=== PATIENT | female | born 1945 | race Caucasian/White ===

== ENCOUNTER → 2023-09-20 07:50 | Outpatient (REF) | payer MEDICARE, OTHER, SELFPAY | LOC: DHCBS HW 07:50 | PROVIDERS: ATTENDING PHYSICIAN Internal Medicine Cardiovascular Disease; FAMILY PHYSICIAN Family Medicine | DX: R60.0 Localized edema (principal) | CPT/HCPCS: 93306 ==

== ENCOUNTER 2024-05-01 03:03 | Emergency (ER) | payer MEDICARE, OTHER, SELFPAY ==
[2024-05-01 03:04] VITALS: BP 134/50
[2024-05-01 03:24] VITALS: BMI 22.9
--- NOTE | 2024-05-01 03:43 | ED.GENMED ---
History of Present Illness
<CRISTA Moore - Last Filed: 05/01/24 07:19>
General
Chief Complaint: Chest Problem
Time Seen by Provider: 05/01/24 03:43
History of Present Illness
History of Present Illness:
Patient is a 78 year old female with a PMH of myelodysplastic syndrome and GERD presenting to the ED with complaints of chest pain x 11 hours. The pain started around 300pm when she was straining on the toilet. The pain was described as dull and
generalized around the chest that radiates to both of her shoulders. Patient rates the pain a 9/10. The pain is worse with laying down and deep breaths. Patient states the pain is not similar to GERD exacerbations. She claims the pain has been
getting worse with time and that Tylenol and albuterol have not helped at all. Patient states shes had multiple bowel movements throughout the night that have been normal. She also admits to associated nausea that comes and goes with 1 bout of
vomiting around 1am after taking a Zofran. There was no blood and described as just a clear to yellowish liquid. Patient denies hematemesis sob fatigue dizziness numbness tingling.
Patient has myelodysplastic syndrome for which she is on lenalidomide for. She started this medication around 2 months ago. Patient also recently had a blood transfusion 3 weeks ago for her anemia. Patient denies any alcohol or tobacco use.
Past History
<CRISTA Moore - Last Filed: 05/01/24 07:19>
Past History
ED Past Medical History: Cancer, Hypothyroidism, Psychiatric and Other (osteopenia)
ED Past Surgical History: Appendectomy, Bowel resection and Gynecological
Social History
Tobacco: Non-smoker
Alcohol: None
Drug: None
Personal:
Living: with family
Employment: Retired
Family History
Family History: Other (Unremarkable)
Review of Systems
<CRISTA Moore - Last Filed: 05/01/24 07:19>
Review of Systems
Respiratory: Reports no symptoms
Cardiac: Reports chest pain
ABD/GI: Reports nausea and vomiting
Neurological: Reports no symptoms
Phy Exam
<CRISTA Moore - Last Filed: 05/01/24 07:19>
General Physical Exam
General Presentation: well appearing and mild distress
General age: appears stated age
General Habitus: elderly
General Mental: alert
Cardiovascular Exam
Cardiovascular Exam: regular rate/rhythm, no edema, no gallop, no JVD and no murmur
Pulmonary Exam
Pulmonary Exam: lungs clear, no respiratory distress, no rales, chest non tender, no crackles, no rhonchi, no stridor, no wheezing and no cough
Scores
<CRISTA Moore - Last Filed: 05/01/24 07:19>
Heart Score for Chest Pain Patients
STEMI patient?: No
History: Slightly or Non-Suspicious
ECG: Normal
Age: >/= 65 years
Risk Factors: 1 or 2 Risk Factors
Troponin: </= Normal Limit
Heart Score for Chest Pain Patients: 3
Heart Score Risk: 2.5% MACE over next 6 weeks
<Kaya Waite DO - Last Filed: 05/01/24 07:22>
Heart Score for Chest Pain Patients
Heart Score for Chest Pain Patients: 3
Heart Score Risk: 2.5% MACE over next 6 weeks
Course
<CRISTA Moore - Last Filed: 05/01/24 07:19>
Orders/Labs/Results
Orders:
Orders
05/01/24 03:12
ECG [Electrocardiogram (*1)] Urgent
Reason for Study: Chest Pain
EKG- Treatment ONCE
05/01/24 03:27
Complete Blood Count/With Diff Urgent
Comprehensive Metabolic Panel Urgent
Manual Differential Urgent
Troponin I Urgent
05/01/24 03:45
Chest [CR Chest - 2 Views ] Urgent
Comment:
Reason For Exam: cp
05/01/24 04:14
Mag Hydrox/Al Hydrox/Simeth [Maalox] 30 ml Phenobarb/Hyoscy/Atropine/Scop [] 10 ml Viscous Lidocaine 2% [Xylocaine Viscous Cup] 10 ml PO NOW
05/01/24 04:19
Mag Hydrox/Al Hydrox/Simeth [Maalox] 30 ml .ROUTE .STK-MED ONE
Phenobarb/Hyoscy/Atropine/Scop [] 10 ml .ROUTE .STK-MED ONE
Viscous Lidocaine 2% [Xylocaine Viscous Cup] 15 ml .ROUTE .STK-MED ONE
05/01/24 05:07
Sucralfate Suspension [Carafate Suspension] 1 gm .ROUTE .STK-MED ONE
05/01/24 05:09
Sucralfate Suspension [Carafate Suspension] 1 gm TUBE NOW STA
05/01/24 05:42
Pantoprazole [Protonix IV] 40 mg IV NOW STA
Abnormal Lab Results
05/01/24
03:27
WBC 4.0 L 10^3/uL
(4.8-10.8)
RBC 2.62 L 10^6/uL
(4.20-5.40)
Hgb 7.7 L g/dL
(12.0-16.0)
Hct 24.1 L %
(37.0-47.0)
MCHC 32.0 L g/dL
(33.0-37.0)
RDW 21.4 H %
(11.5-14.5)
Band Neutrophils 4 H %
(0-3)
BUN 32 H mg/dl
(7-17)
Glucose 107 H mg/dl
(70-99)
05/01/24 03:27
05/01/24 03:27
Vital Signs
Initial and Last Documented VS:
Initial Vital Signs
Temp Pulse Resp BP Pulse Ox
97.6 F 84 24 134/50 99
05/01/24 03:04 05/01/24 03:04 05/01/24 03:04 05/01/24 03:04 05/01/24 03:04
Last Documented Vital Signs
Temp Pulse Resp BP Pulse Ox
97.6 F 68 16 97/51 98
05/01/24 03:04 05/01/24 07:15 05/01/24 07:17 05/01/24 07:14 05/01/24 07:17
<Kaya Waite, DO - Last Filed: 05/01/24 07:22>
Orders/Labs/Results
Orders:
Orders
05/01/24 03:12
ECG [Electrocardiogram (*1)] Urgent
Reason for Study: Chest Pain
EKG- Treatment ONCE
05/01/24 03:27
Complete Blood Count/With Diff Urgent
Comprehensive Metabolic Panel Urgent
Manual Differential Urgent
Troponin I Urgent
05/01/24 03:45
Chest [CR Chest - 2 Views ] Urgent
Comment:
Reason For Exam: cp
05/01/24 04:14
Mag Hydrox/Al Hydrox/Simeth [Maalox] 30 ml Phenobarb/Hyoscy/Atropine/Scop [] 10 ml Viscous Lidocaine 2% [Xylocaine Viscous Cup] 10 ml PO NOW
05/01/24 04:19
Mag Hydrox/Al Hydrox/Simeth [Maalox] 30 ml .ROUTE .STK-MED ONE
Phenobarb/Hyoscy/Atropine/Scop [] 10 ml .ROUTE .STK-MED ONE
Viscous Lidocaine 2% [Xylocaine Viscous Cup] 15 ml .ROUTE .STK-MED ONE
05/01/24 05:07
Sucralfate Suspension [Carafate Suspension] 1 gm .ROUTE .STK-MED ONE
05/01/24 05:09
Sucralfate Suspension [Carafate Suspension] 1 gm TUBE NOW STA
05/01/24 05:42
Pantoprazole [Protonix IV] 40 mg IV NOW STA
Abnormal Lab Results
05/01/24
03:27
WBC 4.0 L 10^3/uL
(4.8-10.8)
RBC 2.62 L 10^6/uL
(4.20-5.40)
Hgb 7.7 L g/dL
(12.0-16.0)
Hct 24.1 L %
(37.0-47.0)
MCHC 32.0 L g/dL
(33.0-37.0)
RDW 21.4 H %
(11.5-14.5)
Band Neutrophils 4 H %
(0-3)
BUN 32 H mg/dl
(7-17)
Glucose 107 H mg/dl
(70-99)
05/01/24 03:27
05/01/24 03:27
Vital Signs
Initial and Last Documented VS:
Initial Vital Signs
Temp Pulse Resp BP Pulse Ox
97.6 F 84 24 134/50 99
05/01/24 03:04 05/01/24 03:04 05/01/24 03:04 05/01/24 03:04 05/01/24 03:04
Last Documented Vital Signs
Temp Pulse Resp BP Pulse Ox
97.6 F 68 16 97/51 98
05/01/24 03:04 05/01/24 07:15 05/01/24 07:17 05/01/24 07:14 05/01/24 07:17
Miladylt;CRISTA Moore - Last Filed: 05/01/24 07:19>
MDM/Problems Addressed
Differential Diagnosis Includes:
muscle strain, gerd exacerbation
MDM/Problems Addressed:
order labs, cxr, cardiac enzymes, 718a update Protonix helped symptoms, discharge with Protonix BID
<CRISTA Moore - Last Filed: 05/01/24 07:19>
*Critical Care Note
Total Time (30-74mins, 75-104mins- exclusive of procedures): Not Applicable
<Kaya Waite DO - Last Filed: 05/01/24 07:22>
*Radiology
Radiology exam reviewed: preliminary read by ED provider (Chest x-ray is unremarkable, similar to previous)
*Pulse Oximetry
Patient hypoxic: no
*EKG
Interpreted by ED Provider?: Yes
Interpretation: normal
Comparison EKG: no changes
Rate: normal
Rhythm: sinus
[place]: normal axis
Interval: normal interval
QRS Pattern: normal QRS
Ischemia: no ischemia
*[employer] Interpretation
Rate: normal
Interpretation: normal
Rhythm: sinus
ED Attending Note
<CRISTA Moore - Last Filed: 05/01/24 07:19>
-
Portions of this chart may have been created with voice recognition software.� Occasional wrong word or��sound alike� substitutions may have occurred due to the inherent limitations of voice recognition software.
<Kaya Waite DO - Last Filed: 05/01/24 07:22>
ED Attending Note
Patient seen and examined by attending physician: Yes
I performed the substantive portion of visit, reviewed & personally made and approve the management plan that is documented in note by myself or JEWEL.: Yes
ED Attending Note:
This is a 78-year-old woman who has history of myelodysplastic disorder, follows with oncologist at [facility]. She also has history of GERD, constipation, hypothyroidism.
Has been maintained on Revlimid which she suspects is aggravating her constipation and may be aggravating her acid reflux. She has had intermittent indigestion more so over the past week and Protonix 40 mg once daily was resumed 5 days ago.
Yesterday afternoon while straining to pass a bowel movement she complains of increased chest pain that has persisted throughout the afternoon and evening. No relief with Tylenol, no relief with albuterol inhaler. Pain is worse with deep breath
but she denies shortness of breath, no palpitations, she did have mild nausea with retching at 130 this morning other than that has had no nausea nor vomiting.
No cough nor fever. No leg pain or swelling.
She did receive a blood transfusion 3 weeks ago for hemoglobin of 6.2. Improved to hemoglobin of 8.9 April 25.
She denies black or tarry stools. No hematemesis.
GENERAL: 78-year-old somewhat frail-appearing woman is awake and alert, pleasant, appears in no acute distress. is accompanying.
EYE: pupils equal and reactive. anicteric
NECK: Supple, nontender, no meningismus, no significant adenopathy.
ENT: Face mask in place.
CARDIAC: Regular rate and rhythm. no murmur.
LUNGS: Clear breath sounds bilaterally, no acute respiratory distress, no wheezes/rales/rhonchi. Mild tenderness to palpation bilateral anterior chest wall.
ABDOMEN: Soft, nondistended, without focal tenderness, no r/g, no cvat. normoactive BS.
NEUROLOGICAL: Alert and oriented x3, no focal neuro deficits.
SKIN: Warm and dry, moderately pale in color, skin intact. No rash.
MUSCULOSKELETAL: No C/C/E. peripheral pulses are full and equal b/l. No palpable tenderness.
PSYCH: Normal and appropriate interaction.
Concern for ACS, GERD, chest wall pain, hiatal hernia. Thromboembolism is less likely.
EKG shows normal sinus rhythm, normal axis, normal intervals, similar and unchanged from previous July 2018.
Will check labs including troponin. Will check chest x-ray.
Labs show mild but stable leukopenia with white blood cell count of 4.0. Moderate anemia with hemoglobin of 7.7. Chemistries are unremarkable save for mildly elevated BUN, troponin is negative.
Will trial a GI cocktail for what I suspect is GERD versus chest wall pain.
05/01/2024 05:40 AM
Patient initially reported moderate but temporary improvement in pain after GI cocktail. No significant relief after Carafate.
She request an IV dose of Protonix and states this was effective with similar pain she experienced after sigmoidectomy. Overall continues to appear comfortable,
Vital signs within normal limits. No tachycardia, no shortness of breath nor palpitations.
05/01/2024 0720 AM
Patient feeling improved after IV Protonix. Has passed a soft bowel movement without difficulty.
Will discharge to home with recommendations to temporarily increase Protonix to twice daily dosing.
Prompt follow-up with oncologist for further evaluation.
Return precautions discussed.
Discharge Plan
Departure
Patient Disposition: Home (Routine Discharge)
Date of Disposition: 05/01/24
Time of Disposition: 07:20
Patient with high blood pressure during this ER visit?: No
Condition: Good
Discharge Problem:
GERD with esophagitis
Instructions: Acid reflux and GERD in adults, Chest Pain PCP Follow Up
Prescriptions:
No Action
levothyroxine [Synthroid] 75 MCG tablet
1 tab PO DAILY
L.acidoph, paracasei,B. lactis 1 EACH capsule
1 ea PO DAILY
cholecalciferol (vitamin D3) 5,000 UNIT tablet,disintegrating
5,000 unit PO DAILY
rosuvastatin [Crestor] 5 mg Tablet
5 mg PO .M, W, F
Referrals:
Rupert Abdalla MD [Family Provider] - Call in 1-3 days for appt
Activity Restrictions/Additional Instructions:
Increase Protonix to twice daily dosing.
Maintain a bland soft diet.
Follow-up with your primary care physician as well as oncologist for recheck/further evaluation.
Interventions
Interventions:
*Risk Screen - Suicide Last Done: 05/01/24 03:04
*General Assessment Last Done: 05/01/24 03:24
*Neglect/Abuse Screening Last Done: 05/01/24 03:04
*ED COVID-19 Vaccine History Last Done: 05/01/24 03:24
ED- Pulmonary Assessment Last Done: 05/01/24 03:24
ED-Musculoskeletal Assessment Last Done: 05/01/24 03:24
ED- Cardiac Assessment Last Done: 05/01/24 03:24
Discharge Date and Time
Print Language: [id number]
[2024-05-01 03:45] LABS: Hematocrit 24.1 % (37.0-47.0); Hemoglobin 7.7 g/dL (12.0-16.0); Mean Corpuscular Hgb 29.4 pg (27.0-31.0); Platelet Count 178 10^3/uL (130-400); Red Blood Cell Count 2.62 10^6/uL (4.20-5.40); Red Cell Dist. Width 21.4 % (11.5-14.5)
[2024-05-01 04:00] LABS: ALT (SGPT) 17 U/L (0-35); AST (SGOT) 16 U/L (14-36); Albumin 3.6 g/dl (3.5-5.0); Alkaline Phosphatase 66 U/L (38-126); Blood Urea Nitrogen 32 mg/dl (7-17); Calcium 8.7 mg/dl (8.4-10.2); Carbon Dioxide 24 mmol/L (22-30); Chloride 102 mmol/L (98-107); Estimated Creatinine Clearance 42 ml/min; Glucose 107 mg/dl (70-99); Potassium 4.5 mmol/L (3.5-5.1); Sodium 140 mmol/L (135-145); Total Bilirubin 0.7 mg/dl (0.2-1.3); Total Protein 6.4 g/dl (6.3-8.2); eGFR 57.66
[2024-05-01 04:11] LABS: Troponin I < 0.012 ng/ml
[2024-05-01] MEDS: MAALOX 50 PO (04:22)
[2024-05-01 04:24] VITALS: BP 113/50
[2024-05-01 04:41] LABS: Absolute Neutrophils -Man Diff 2.3 10^3/uL (1.4-6.5); Anisocytosis 1+; Band Neutrophils 4 % (0-3); Eosinophils 1 % (0-6); Hypochromasia 1+; Lymphocytes 24 % (20-51); Metamyelocytes 3 % (-); Monocytes 7 % (2-9); Myelocytes 6 % (-); Normal RBC Morphology No; Platelets Checked Yes; Segmented Neutrophils 54 % (42-75)
[2024-05-01 04:42] LABS: Schistocytes Slight; Total Cells Counted 100
[2024-05-01 05:00] VITALS: BP 95/47
[2024-05-01] MEDS: CARAFATE SUSPENSION 1 GM TUBE (05:10)
[2024-05-01] MEDS: PROTONIX IV 40 MG IV (05:47)
[2024-05-01 06:34] VITALS: BP 91/45
[2024-05-01 07:14] VITALS: BP 97/51
== END 2024-05-01 07:50 | disposition home or self-care (01) ==
LOC: EMR 03:03
PROVIDERS: EMERGENCY PHYSICIAN Emergency Medicine; FAMILY PHYSICIAN Family Medicine
DX: K21.00 Gastro-esophageal reflux disease with esophagitis, without bleeding (principal); E03.9 Hypothyroidism, unspecified
CPT/HCPCS: 99285; 96374; 71046; 80053; 84484; 85025; 93005